=== PATIENT | male | born 1945 | race Caucasian/White ===

== ENCOUNTER 2018-07-17 06:14 | Day surgery (SDC) | payer MEDICARE ==
[~2018-07-17] VITALS: Ht 170.2 cm; Wt 25.4 kg
[~2018-07-17 06:14] MED LIST: AMLO5TAB7 PO; ASPI-555 PO; CLOP75TA14 PO; FOLI0.8C PO; LISI40TA4 PO; METO-408 PO; MULT-1203 PO; OMEG-136 PO; POTA99TA21 PO; SAW450CA7 PO; SODIUM CHLORIDE 0.9% 1000ML 1,000 ML IV ONE; TADA5TAB3 PO; TERA5CAP4 PO; VITA1CAP85 PO
[2018-07-17 07:02] VITALS: BP 138/51
[2018-07-17] MEDS ORDERED: GLYCOPYRROLATE 0.2 MG/ML 5 ML VIAL ONE (08:07)
[2018-07-17] MEDS ORDERED: PROPOFOL 1000 MG/100 ML 100 ML IV ONE (08:07)
[2018-07-17 08:12] VITALS: BP 128/60
[2018-07-17 08:16] VITALS: BP 133/61
[2018-07-17 08:34] VITALS: BP 129/59
[2018-07-17 08:39] VITALS: BP 128/59
== END 2018-07-17 08:40 | disposition home or self-care (01) ==
LOC: DAH 06:14 → ENDO 06:14 → EDSTATUS 12:27
PROVIDERS: ATTEND Internal Medicine Gastroenterology
DX: Z12.11 Encounter for screening for malignant neoplasm of colon (principal); K63.5 Polyp of colon; N40.0 Benign prostatic hyperplasia without lower urinary tract symptoms; I25.10 Atherosclerotic heart disease of native coronary artery without angina pectoris; Z95.4 Presence of other heart-valve replacement; I10 Essential (primary) hypertension; Z79.899 Other long term (current) drug therapy; Z90.49 Acquired absence of other specified parts of digestive tract; Z98.890 Other specified postprocedural states; I45.10 Unspecified right bundle-branch block; I51.7 Cardiomegaly
CPT/HCPCS: 45380; 45385; 88305; 93005; A4606; J2704; J3490; J7030; 45384